=== PATIENT | female | born 1975 | race Caucasian/White ===

== ENCOUNTER 2020-11-26 13:45 | Emergency (ER) | payer MEDICAID, SELFPAY ==
[~2020-11-26] VITALS: Ht 157.5 cm; Wt 68.0 kg
[~2020-11-26 13:45] MED LIST: ACET-2619 PO
[2020-11-26 14:10] VITALS: BP 110/73
[2020-11-26] MEDS ORDERED: IBUP-2213 PO (15:29)
[2020-11-26] MEDS ORDERED: PROM118S5 PO (15:29)
[2020-11-26] MEDS ORDERED: ONDA-24 SL (15:29)
--- NOTE | 2020-11-26 15:55 | NUR ---
Patient discharged with v/s stable. Written and verbal after care instructions given and explained. Patient alert, oriented and verbalized understanding of instructions. Ambulatory with steady gait. All questions addressed prior to discharge. ID band removed. Patient advised to follow up with PMD. Rx of Ibuprofen and Ondansetron and Promethazine given. Patient educated on indication of medication including possible reaction and side effects. Opportunity to ask questions provided and answered.
== END 2020-11-26 15:55 | disposition home or self-care (01) ==
LOC: MED 13:45
DX: U07.1 COVID-19 (principal); R11.0 Nausea; Z79.899 Other long term (current) drug therapy
CPT/HCPCS: 99283